=== PATIENT | female | born 1965 | race Caucasian/White ===

== ENCOUNTER 2020-03-19 14:08 | Outpatient (CLI) | payer BC, SELFPAY ==
--- NOTE | ~2020-03-19 | CT_ITS ---
EXAMINATION: CT abdomen pelvis w con DATE: 03/19/2020 14:34 INDICATION: Right flank pain. Nausea and vomiting. History of lap band and gastric sleeve. TECHNIQUE: Computed tomography (CT) of the abdomen and pelvis was performed with 100 cc Omnipaque 350 intravenous contrast. Automated exposure control and iterative reconstruction technique were employe d. Exam dose: 995.67 mGy-cm total exam DLP. COMPARISON: 06/01/2019 CT abdomen pelvis FINDINGS: The lung bases are clear of infiltrate or consolidation. Normal heart size. No pericardial or pleural effusion. Small sliding hiatal hernia. Postoperative change from clinical history of gastric sleeve. The laparoscopic band is present. Status post cholecystectomy. Mild prominence of the bile ducts is likely secondary to the cholecystec david. No hepatic, splenic, pancreatic, adrenal or renal space-occupying mass lesion other than a small left renal cortical cyst is evident. There is irregularity of the right renal outline likely due to chron ic scarring. No urinary tract calculus or hydroureteronephrosis. Retroverted uterus. The uterus, adnexal areas and urinary bladder otherwise are unremarkable. Normal caliber of the abdominal aorta. No intraperitoneal or retroperitoneal or pelvic mass lesion or adenopathy or ascites. There is medial midline position of the cecum, consistent with retained cecal mesentery. Normal appen pantera. There is a prominent amount of fecal material within the colon but no bowel obstruction, bowel w all thickening, pneumatosis or intraperitoneal free air is evident. Small fat-containing umbilical hernia. Status post left total hip arthroplasty. Mild to moderate anterior wedge compression fracture deformity of L1, which appears chronic. Bilateral L5 spondylolysis with associated grade 2 anterolisthesis at L5-S1. There is moderately prom inent degenerative disease at L5-S1. Transitional first sacral vertebra. IMPRESSION: Small sliding hiatal hernia Postoperative change of the stomach Status post cholecystectomy Retained cecal mesentery, midline cecum; normal appendix Status post left total hip arthroplasty Moderate anterior wedge compression fracture deformity of L1, likely chronic Bilateral L5 spondylolysis with associated grade 2 anterolisthesis at L5-S1; moderately prominent deg enerative disease at L5-S1 Transitional first sacral vertebra Reviewed, dictated and finalized at [facility]. Reviewed, dictated and finalized at location A. IMPRESSION: Small sliding hiatal hernia Postoperative change of the stomach Status post cholecystectomy Retained cecal mesentery, midline cecum; normal appendix Status post left total hip arthroplasty Moderate anterior wedge compression fracture deformity of L1, likely chronic Bilateral L5 spondylolysis with associated grade 2 anterolisthesis at L5-S1; mo derately prominent degenerative disease at L5-S1 Transitional first sacral vertebra
== END 2020-03-19 14:09 ==
PROVIDERS: PCP Emergency Medicine; Visit Provider Emergency Medicine
DX: R30.0 Dysuria (principal); K44.9 Diaphragmatic hernia without obstruction or gangrene; Z90.49 Acquired absence of other specified parts of digestive tract; M47.896 Other spondylosis, lumbar region
CPT/HCPCS: 74177; Q9967

== ENCOUNTER 2021-05-06 16:48 | Outpatient (CLI) | payer BC, SELFPAY ==
--- NOTE | ~2021-05-06 | MM_ITS ---
EXAMINATION: MM screening [place] [facility] w ebony HISTORY: Screening mammogram TECHNIQUE: Craniocaudal and mediolateral oblique 3-D tomosynthesis images were obtained and synthetic 2-D images were generated. CAD analysis was submitted and interpreted. COMPARISON: 01/04/2017, 09/27/2014 bilateral digital screening mammogram examinations BREAST PARENCHYMAL COMPOSITION: There are scattered areas of fibroglandular density. FINDINGS: Stable mild fibroglandular asymmetry; history of breast reduction surgery. There is no evid ence of suspicious mass, calcification, or architectural distortion to suggest malignancy in either b reast. There has been no suspicious interval change. IMPRESSION: 1. No mammographic evidence of malignancy. 2. Recommend routine screening mammography in one year. BI-RADS Category 2: Benign finding(s). Reviewed, dictated and finalized at location A.
== END 2021-05-06 16:49 | disposition home or self-care (01) ==
LOC: ANHIMG 16:50
PROVIDERS: PCP Emergency Medicine; Visit Provider Obstetrics & Gynecology
DX: Z12.31 Encounter for screening mammogram for malignant neoplasm of breast (principal)
CPT/HCPCS: 77063; 77067

== ENCOUNTER 2021-09-09 15:54 | Outpatient (CLI) | payer BC, SELFPAY ==
--- NOTE | ~2021-09-09 | XR_ITS ---
EXAMINATION: XR hip RT min 2V DATE: 09/09/2021 16:19 INDICATION: Dorsalgia, unspecified. Right hip pain. TECHNIQUE: 2 views of right hip were obtained. COMPARISON: CT abdomen and pelvis 03/19/2020 FINDINGS: There is an old healed fracture deformity of neck of proximal right femur. No acute fractur e. There is mild right hip osteoarthritis. IMPRESSION: 1. Mild right hip osteoarthritis. 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
--- NOTE | ~2021-09-09 | XR_ITS ---
EXAMINATION: XR lumbar spine 2-3V DATE: 09/09/2021 16:19 INDICATION: Dorsalgia, unspecified. TECHNIQUE: 3 views of lumbar spine were obtained. COMPARISON: CT abdomen and pelvis 03/19/2020 FINDINGS: There is 9 degrees levocurvature of thoracic lumbar spine. There is 7 mm anterolisthesis of L5 on S1. There is a chronic compression fracture of L1 with 1/5 loss of height. There is mildly dec reased disc height at L1-L2, L3-L4, and L4-L5 and moderately decreased disc height at L5-S1. There is severe facet joint osteoarthritis in lower lumbar spine. Surgical clips in the right upper quadrant are likely from cholecystectomy. There is a left hip arthroplasty. IMPRESSION: 1. Moderate lumbar spondylosis. Reviewed, dictated and finalized at location A. 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
== END 2021-09-09 15:55 ==
PROVIDERS: PCP Emergency Medicine; Visit Provider Emergency Medicine
DX: M47.896 Other spondylosis, lumbar region (principal); M16.11 Unilateral primary osteoarthritis, right hip
CPT/HCPCS: 72100; 73502

== ENCOUNTER 2021-10-02 15:05 | Outpatient (CLI) | payer BC, SELFPAY ==
--- NOTE | ~2021-10-02 | MR_ITS ---
EXAMINATION: MR lumbar spine wo con DATE: 10/02/2021 16:00 INDICATION: Low back pain. TECHNIQUE: Magnetic resonance imaging (MRI) of the lumbar spine was performed without intravenous con trast. Sequences included sagittal T2-weighted FSE, sagittal T2-weighted FS FSE, sagittal T1-weighted FSE, and axial T2-weighted FSE. COMPARISON: CT chest, abdomen, and pelvis 06/02/2011 FINDINGS: There is 6 degrees levocurvature of lumbar spine. There are 12 pairs of ribs. L5 is a trans itional segment. There is 6 mm anterolisthesis of L4 on L5. There is a chronic compression fracture o f T12 with 1/5 loss of height. There is mildly decreased disc height at L3-L4 and severely decreased disc height at L4-L5. The distal spinal cord signal intensity is normal. The conus medullaris is at T 12-L1. The following disc levels are specifically discussed: L1-L2: There is a left foraminal protrusion. There is severe right and mild left facet joint osteoart hritis. There is mild left neural foraminal stenosis. There is no central canal stenosis. L2-L3: The disc is bulging. There is mild bilateral facet joint osteoarthritis. There is no neural fo raminal stenosis. There is mild central canal stenosis. L3-L4: The disc is bulging and has an annular fissure. There is severe bilateral facet joint osteoart hritis. There is mild bilateral neural foraminal stenosis. There is mild central canal stenosis. L4-L5: The disc does not extend beyond the endplate margin. There is severe bilateral facet joint ost eoarthritis. There is mild bilateral neural foraminal stenosis. There is no central canal stenosis. L5-S1: The disc does not extend beyond the endplate margin. There is mild right facet joint osteoarth ritis. There is no neural foraminal stenosis. There is no central canal stenosis. IMPRESSION: 1. Severe lower lumbar spondylosis. Reviewed, dictated and finalized at location A.
--- NOTE | ~2021-10-02 | XR_ITS ---
XR lumbar spine 6V w bending DATE: 10/02/2021 16:18 INDICATION: Low back pain TECHNIQUE: Standing AP, standing lateral, supine bilateral oblique views, coned lateral lumbosacral v iew. Standing flexion and extension lateral views COMPARISON: 10/02/2021 MRI lumbar spine 09/09/2021 lumbar spine 03/19/2020 CT abdomen pelvis FINDINGS: There is diffuse osteopenia. There is approximately 11 degrees levoscoliosis of the lumbar spine. There is a transitional lumbosacral vertebra with fusion of the transverse elements on the left with the sacral alar. Transitional vertebra may be a source of chronic low back pain. The included lower thoracic and lumbar pedicles are intact. There is minimal loss of height and anterior wedging at T12, suggesting old mild compression fracture deformity. No fracture or bone destruction is evident otherwise. There is moderately severe degenerative disc disease and grade 2 anterolisthesis at the interspace be tween the last functional lumbar vertebra and the transitional lumbosacral vertebra (L4-5).. There is mild to moderate degenerative disc disease of the remainder of the lumbar spine. The sacroiliac joints are unremarkable. Status post left total hip arthroplasty. Status post cholecystectomy IMPRESSION: Likely chronic mild anterior wedge compression fracture deformity at T12 Grade 2 anterolisthesis and moderately severe degenerative disc disease at L4-5 Mild to moderate degenerative disc disease at the remainder of the lumbar spine Levoscoliosis Osteopenia Status post left total hip arthroplasty Status post cholecystectomy Reviewed, dictated and finalized at location A. IMPRESSION: Likely chronic mild anterior wedge compression fracture deformity a t T12 Grade 2 anterolisthesis and moderately severe degenerative disc disease at L4-5 Mild to moderate degenerative disc disease at the remainder of the lumbar spine Levoscoliosis Osteopenia Status post left total hip arthroplasty Status post cholecystectomy
== END 2021-10-02 15:06 ==
DX: M54.50 Low back pain, unspecified (principal); M51.36 Other intervertebral disc degeneration, lumbar region; M85.88 Other specified disorders of bone density and structure, other site; Z90.49 Acquired absence of other specified parts of digestive tract
CPT/HCPCS: 72114; 72148

== ENCOUNTER 2022-02-03 16:48 | Outpatient (CLI) | payer BC, SELFPAY ==
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
== END 2022-02-03 16:49 ==
LOC: MICIMG 16:49
PROVIDERS: PCP Emergency Medicine
DX: M47.892 Other spondylosis, cervical region (principal)
CPT/HCPCS: 72141

== ENCOUNTER 2022-09-20 17:23 | Outpatient (CLI) | payer OTHER, BC, SELFPAY ==
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
== END 2022-09-20 17:24 | disposition home or self-care (01) ==
PROVIDERS: PCP Emergency Medicine; Visit Provider Emergency Medicine
DX: M54.50 Low back pain, unspecified (principal); M54.10 Radiculopathy, site unspecified; M54.2 Cervicalgia
CPT/HCPCS: 72125; 72128; 72131

== ENCOUNTER 2022-10-21 17:05 | Outpatient (CLI) | payer BC, SELFPAY ==
--- NOTE | ~2022-10-21 | MM_ITS ---
EXAMINATION: MM screening [place] [facility] w ebony HISTORY: Screening TECHNIQUE: Craniocaudal and mediolateral oblique 3-D tomosynthesis images were obtained and synthetic 2-D images were generated. CAD analysis was submitted and interpreted. COMPARISON: Comparison to multiple prior studies sequentially, with oldest reviewed study dated 09/27. BREAST PARENCHYMAL COMPOSITION: There are scattered areas of fibroglandular density. FINDINGS: There is no evidence of suspicious mass, calcification, or architectural distortion to sugg est malignancy in either breast. There has been no suspicious interval change. IMPRESSION: 1. No mammographic evidence of malignancy. 2. Recommend routine screening mammography in one year. BI-RADS Category 1: Negative Reviewed, dictated and finalized at location A.
== END 2022-10-21 17:06 | disposition home or self-care (01) ==
LOC: ANHIMG 17:07
PROVIDERS: PCP Emergency Medicine; Visit Provider Obstetrics & Gynecology
DX: Z12.31 Encounter for screening mammogram for malignant neoplasm of breast (principal)
CPT/HCPCS: 77063; 77067

== ENCOUNTER 2022-10-25 15:54 | Outpatient (CLI) | payer BC, SELFPAY ==
--- NOTE | ~2022-10-25 | US_ITS ---
EXAMINATION: US thyroid DATE: 10/25/2022 16:16 INDICATION: Nontoxic multinodular goiter. TECHNIQUE: Multiple ultrasound images of the thyroid were obtained. COMPARISON: Ultrasound 06/07/2017 FINDINGS: The right thyroid lobe measures 5.3 x 1.6 x 1.8 cm. The left thyroid lobe measures 4.6 x 1.4 x 1.7 c m. In the left thyroid lobe, there is a 7 mm solid, hypoechoic, wider than tall nodule with smooth m argin and peripheral calcifications (TI-RADS TR4). There are multiple subcentimeter nodules in the th yroid. In the right thyroid lobe, there is a 10 mm solid, hypoechoic, wider than tall nodule with irr egular margin and macrocalcifications (TR5). In the right thyroid lobe, there is a 12 mm solid, hypoe choic, wider than tall nodule with lobulated margin without punctate echogenic foci (TR4). In the rig ht thyroid lobe, there is a 15 mm solid, hypoechoic, wider than tall nodule with ill-defined margin w ithout echogenic foci (TR4). IMPRESSION: 1. Multinodular goiter. Ultrasound-guided fine-needle aspiration of 2 nodules is recommended. Reviewed, dictated and finalized at location A. IMPRESSION: 1. Multinodular goiter. Ultrasound-guided fine-needle aspiration of 2 nodules i s recommended.
== END 2022-10-25 15:55 ==
LOC: MICIMG 15:55
PROVIDERS: PCP Emergency Medicine; Visit Provider Emergency Medicine
DX: E04.2 Nontoxic multinodular goiter (principal)
CPT/HCPCS: 76536